=== PATIENT | male | born 1940 | race Two or more races ===

== ENCOUNTER 2018-04-19 08:41 | Outpatient (CLI) | payer OTHER | END 2018-04-19 17:00 | disposition home or self-care (01) | LOC: SONOGRAMA 08:41 → RX STUDY 10:15 → SONOGRAMA 17:00 | DX: R10.84 Generalized abdominal pain (principal); M12.842 Other specific arthropathies, not elsewhere classified, left hand; M12.841 Other specific arthropathies, not elsewhere classified, right hand; M19.042 Primary osteoarthritis, left hand; M19.041 Primary osteoarthritis, right hand ==

== ENCOUNTER → 2019-04-14 | Outpatient (CLI) | payer OTHER | END | disposition home or self-care (01) | LOC: RAD 08:45 → RX STUDY 09:15 | DX: E04.8 Other specified nontoxic goiter (principal) ==

== ENCOUNTER 2019-09-08 09:09 | Outpatient (CLI) | payer OTHER | END 2019-09-08 09:13 | disposition home or self-care (01) | LOC: RAD 09:09 | DX: M25.551 Pain in right hip (principal) ==

== ENCOUNTER 2021-03-08 09:14 | Outpatient (CLI) | payer OTHER | END 2021-03-08 09:22 | disposition home or self-care (01) | LOC: NUCLEAR 09:14 | PROVIDERS: ATTEND Internal Medicine Cardiovascular Disease | DX: I87.2 Venous insufficiency (chronic) (peripheral) (principal) ==